=== PATIENT | male | born 1960 | race Caucasian/White ===

== ENCOUNTER 2022-04-23 04:35 | Day surgery (SDC) | payer OTHER ==
[2022-04-19 16:06] VITALS: BMI 27.3
[2022-04-23 07:58] VITALS: RESP 18; TEMP 97.8
[2022-04-23] MEDS ORDERED: LIDOCAINE HCL 1%, 10 MG/ML (20ML VIAL) ONE (10:02)
[2022-04-23] MEDS ORDERED: BUPIVACAINE HCL/PF 0.5% (5MG/ML) 10 ML VIAL ONE (10:03)
[2022-04-23] MEDS ORDERED: MIDAZOLAM HCL 2 MG/2 ML SINGLE DOSE VIAL ONE (10:13)
[2022-04-23] MEDS ORDERED: PROPOFOL 20 ML ONE (10:13)
[2022-04-23] MEDS ORDERED: LIDOCAINE HCL 1%, 10 MG/ML (20ML VIAL) NR ONE (10:34)
[2022-04-23] MEDS ORDERED: BUPIVACAINE HCL/PF 0.5% (5MG/ML) 10 ML VIAL IJ ONE (10:34)
[2022-04-23 11:57] VITALS: BP 133/81; PULSE 62
== END 2022-04-23 11:45 | disposition home or self-care (01) ==
LOC: JASU-SURG 04:35
PROVIDERS: ATTEND Surgery
PROC: 0JBM0ZZ Excision of Left Upper Leg Subcutaneous Tissue and Fascia, Open Approach (ICD-10-PCS; principal; 2022-04-23 10:00)
DX: B07.9 Viral wart, unspecified (principal)
CPT/HCPCS: 88305-TC